=== PATIENT | male | born 1940 | race Caucasian/White ===

== ENCOUNTER → 2023-12-29 | Outpatient (REF) | payer MEDICARE, OTHER ==
[~2023-12-29] MED LIST: ELIQ2.5T PO; MAGN400C PO; ROSU10TA61 PO
[2023-12-29 18:39] LABS: APPEARANCE, URINE CLEAR (CLEAR); BACTERIA, URINE AUTO NEGATIVE (NEGATIVE); BILIRUBIN, URINE AUTO NEGATIVE (NEGATIVE); BLOOD, URINE BLOOD NEGATIVE (NEGATIVE); COLOR, URINE YELLOW (YELLOW); GLUCOSE, URINE (UA) AUTO NEGATIVE (NEGATIVE); KETONE, URINE AUTO NEGATIVE (NEGATIVE); LEUKOCYTE ESTERASE, URINE AUTO NEGATIVE (NEGATIVE); MUCUS, URINE SMALL (NEGATIVE); NITRITE, URINE AUTO NEGATIVE (NEGATIVE); PROTEIN, URINE AUTO NEGATIVE (NEGATIVE); RBC, URINE AUTO 0 /HPF (0-3); SPECIFIC GRAVITY URINE AUTO 1.015 (1.002-1.035); SQUAMOUS EPITHELIAL CELL UR AU 0 /HPF (0-6); UROBILINOGEN, URINE AUTO 0.2 mg/dL (0.0-2.0); WBC, URINE AUTO 1 /HPF (0-3)
== END ==
LOC: M SMT 17:15
PROVIDERS: ATTEND Urology
DX: Z85.51 Personal history of malignant neoplasm of bladder (principal)

== ENCOUNTER 2024-03-17 06:12 | Day surgery (SDC) | payer MEDICARE, OTHER ==
[~2024-03-17] VITALS: Ht 188 cm; Wt 91.1 kg
[2024-03-17] MEDS: LR 1,000 ML IV SCH (06:54)
[2024-03-17] MEDS: CelecoXIB 400 MG CAP PO ONE (06:54)
[2024-03-17] MEDS: ceFAZolin SOD 2 GM in IV 1 EA IV ONE (07:38)
[2024-03-17] MEDS ORDERED: SUGAMMADEX SODIUM 500 MG/5 ML VIAL (BRIDION) As Ordered ONE (08:03)
[2024-03-17] MEDS ORDERED: ONDANSETRON 4MG 2ML VIAL As Ordered ONE (08:03)
[2024-03-17] MEDS ORDERED: ETOMIDATE INJ 20MG/10ML VIAL As Ordered ONE (08:03)
[2024-03-17] MEDS ORDERED: MIDAZOLAM INJ 2MG/2ML VIAL As Ordered ONE (08:03)
[2024-03-17] MEDS ORDERED: ACETAMINOPHEN 1000MG 100ML IV BAG As Ordered ONE (08:03)
[2024-03-17] MEDS ORDERED: LIDOCAINE 2% 100MG/5ML SDV (FOR ANES.) As Ordered ONE (08:03)
[2024-03-17] MEDS ORDERED: propofoL 200 MG/20 ML VIAL As Ordered ONE (08:03)
[2024-03-17] MEDS ORDERED: ROCURONIUM BROMIDE 50MG/5ML VIAL As Ordered ONE (08:03)
[2024-03-17] MEDS ORDERED: fentaNYL 250 MCG/5 ML INJECTION As Ordered ONE (08:03)
[2024-03-17] MEDS ORDERED: METOCLOPRAMIDE INJ 10MG/2ML VIAL As Ordered ONE (08:03)
[2024-03-17] MEDS ORDERED: PHENYLephrine 500MCG 5ML (100MCG/ML) SYRINGE As Ordered ONE (08:08)
[2024-03-17] MEDS ORDERED: LABETALOL 100MG/20ML VIAL As Ordered ONE (08:23)
[2024-03-17] MEDS ORDERED: fentaNYL 100 MCG/2 ML INJECTION IV PRN (09:50)
[2024-03-17] MEDS ORDERED: LR 1,000 ML IV SCH (09:50)
[2024-03-17] MEDS ORDERED: ONDANSETRON 4MG 2ML VIAL IV PRN (09:50)
[2024-03-17] MEDS ORDERED: oxyCODONE 5MG TAB PO PRN (09:50)
[2024-03-17] MEDS: LIDOCAINE 1% SDV 30ML VIAL As Ordered ONE (09:50)
[2024-03-17] MEDS: METOPROLOL 5 MG/5 ML VIAL IV PRN (10:29)
[2024-03-17] MEDS: HYDROMORPHONE HCL 0.5 MG/ 0.5 ML SYRINGE IV PRN (10:34)
[2024-03-17] MEDS ORDERED: NORCO, ANEXSIA 5/325MG TABLET (HYDROcodone/ACETAMINOPHEN) PO PRN ×2 (10:55)
[2024-03-17 10:59] VITALS: BP 160/102
[2024-03-17] MEDS: KETOROLAC 30 MG/ML 1ML VIAL IV SCH (11:03)
[2024-03-17 12:00] VITALS: BP 121/84; TEMP 97.3; O2SAT 96
== END 2024-03-17 12:11 | disposition home or self-care (01) ==
LOC: M SDC 06:12
PROVIDERS: ATTEND Surgery
DX: K40.90 Unilateral inguinal hernia, without obstruction or gangrene, not specified as recurrent (principal); Z86.73 Personal history of transient ischemic attack (TIA), and cerebral infarction without residual deficits; Z79.01 Long term (current) use of anticoagulants; E78.5 Hyperlipidemia, unspecified; Z79.899 Other long term (current) drug therapy; Z95.0 Presence of cardiac pacemaker
CPT/HCPCS: 49650; C1781; J0131; J0665; J0690; J1100; J1170; J1885; J1920; J2250; J2371; J2405; J2765; J3010

== ENCOUNTER → 2024-11-16 | Outpatient (REF) | payer MEDICARE, OTHER ==
[2024-11-16 17:45] LABS: APPEARANCE, URINE CLEAR (CLEAR); BACTERIA, URINE AUTO NEGATIVE (NEGATIVE); BILIRUBIN, URINE AUTO NEGATIVE (NEGATIVE); BLOOD, URINE BLOOD NEGATIVE (NEGATIVE); COLOR, URINE YELLOW (YELLOW); GLUCOSE, URINE (UA) AUTO NEGATIVE (NEGATIVE); KETONE, URINE AUTO NEGATIVE (NEGATIVE); LEUKOCYTE ESTERASE, URINE AUTO NEGATIVE (NEGATIVE); MUCUS, URINE SMALL (NEGATIVE); NITRITE, URINE AUTO NEGATIVE (NEGATIVE); PROTEIN, URINE AUTO 1+ mg/dL (NEGATIVE); RBC, URINE AUTO 2 /HPF (0-3); SPECIFIC GRAVITY URINE AUTO 1.015 (1.002-1.035); SQUAMOUS EPITHELIAL CELL UR AU 0 /HPF (0-6); UROBILINOGEN, URINE AUTO 0.2 mg/dL (0.0-2.0); WBC, URINE AUTO 0 /HPF (0-3)
== END ==
LOC: M SMT 16:59
PROVIDERS: ATTEND Urology
DX: D49.4 Neoplasm of unspecified behavior of bladder (principal)

== ENCOUNTER 2025-06-14 10:49 | Day surgery (SDC) | payer MEDICARE, OTHER ==
[~2025-06-14] VITALS: Ht 188 cm; Wt 94.4 kg
[~2025-06-14 10:49] MED LIST changes: +BACT800T5 PO; +DONE10TA90 PO; +MIRT-84 PO; +MULT-90 PO; +OXYB5TAB14 PO; +PYRI1TAB5 PO; -ROSU10TA61 PO; +ROSU10TA90 PO; +VITA100T91 PO; +VITA500T43 PO; +[UNRECOGNIZED DRUG - REMARK] PO
[2025-06-14] MEDS ORDERED: LR 1,000 ML IV SCH (11:05)
[2025-06-14] MEDS ORDERED: LIDOCAINE 2% 100 MG/5 ML SDV (FOR ANES.) As Ordered ONE (13:22)
[2025-06-14] MEDS ORDERED: ETOMIDATE 20 MG/10 ML VIAL As Ordered ONE (13:22)
[2025-06-14] MEDS: ceFAZolin SOD 2 GM IV ONCE IV ONE (13:35)
[2025-06-14] MEDS ORDERED: ROCURONIUM BROMIDE 50MG/5ML VIAL As Ordered ONE (13:40)
[2025-06-14] MEDS ORDERED: ONDANSETRON 4MG/2ML VIAL As Ordered ONE (13:41)
[2025-06-14] MEDS ORDERED: ACETAMINOPHEN 1000MG/100ML IV BAG As Ordered ONE (13:42)
[2025-06-14] MEDS: MITOMYCIN 40MG IN 40ML SWFI SYRINGE INTRAVESIC ONE (13:56)
[2025-06-14] MEDS ORDERED: SUGAMMADEX SODIUM 200 MG/2 ML VIAL As Ordered ONE (13:57)
[2025-06-14] MEDS ORDERED: MACR100C43 PO (14:12)
[2025-06-14] MEDS: LABETALOL 100 MG/20 ML VIAL IV PRN (14:25)
[2025-06-14] MEDS ORDERED: ONDANSETRON 4MG/2ML VIAL IV PRN (14:25)
[2025-06-14] MEDS ORDERED: MORPHINE 2 MG/ML 1 ML VIAL IV PRN (14:25)
[2025-06-14 14:45] VITALS: BP 167/105
[2025-06-14 15:45] VITALS: BP 141/99; TEMP 97.6; O2SAT 95
== END 2025-06-14 16:25 | disposition home or self-care (01) ==
LOC: M SDC 10:49
PROVIDERS: ATTEND Urology
DX: C68.0 Malignant neoplasm of urethra (principal); N32.89 Other specified disorders of bladder; I48.91 Unspecified atrial fibrillation; E78.00 Pure hypercholesterolemia, unspecified; Z79.01 Long term (current) use of anticoagulants; Z79.899 Other long term (current) drug therapy; Z95.0 Presence of cardiac pacemaker; F03.90 Unspecified dementia, unspecified severity, without behavioral disturbance, psychotic disturbance, mood disturbance, and anxiety; Z85.528 Personal history of other malignant neoplasm of kidney; Z86.73 Personal history of transient ischemic attack (TIA), and cerebral infarction without residual deficits; Z90.5 Acquired absence of kidney
CPT/HCPCS: 51720; 52235; 88305; J0131; J0688; J1920; J2405; J3010; J9280